=== PATIENT | female | born 1995 | race Caucasian/White ===

== ENCOUNTER 2019-03-13 17:54 | Emergency (ER) | payer OTHER, SELFPAY ==
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
[2019-03-13 22:32] VITALS: BP 132/80; TEMP 98.5; O2SAT 98
== END 2019-03-13 21:09 | disposition home or self-care (01) ==
LOC: ER 17:54
DX: M62.838 Other muscle spasm (principal); V49.49XA Driver injured in collision with other motor vehicles in traffic accident, initial encounter; Z72.0 Tobacco use
CPT/HCPCS: 99282